=== PATIENT | female | born 1935 | race Caucasian/White ===

== ENCOUNTER 2016-10-12 15:15 | Emergency (ER) | payer MEDICARE, OTHER ==
[2016-10-12] MEDS ORDERED: ONDANSETRON 4 MG VIAL ONE ×2 (22:16→22:31)
[2016-10-12] MEDS ORDERED: CEFTRIAXONE 1 GM VIAL ONE (22:16)
[2016-10-12] MEDS ORDERED: MORPHINE 2 MG/ML SYR ONE (22:17)
[2016-10-12] MEDS ORDERED: SODIUM CHLORIDE 0.9% 100 ML IV ONE (22:17)
== END 2016-10-13 00:33 | disposition home or self-care (01) ==
LOC: ER 15:15
DX: N30.01 Acute cystitis with hematuria (principal); N28.89 Other specified disorders of kidney and ureter
CPT/HCPCS: 36415; 74022; 74176; 80053; 81001; 83690; 85025; 87077; 87088; 87186; 96365; 96375; 99285; J0696; J2405